=== PATIENT | female | born 2000 | race Hispanic/Latino ===

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

== ENCOUNTER 2022-03-21 08:14 | Emergency (ER) | payer OTHER ==
[~2022-03-21] VITALS: Ht 157.5 cm; Wt 95.3 kg
[~2022-03-21 08:14] MED LIST changes: +HYDROCODONE PO
[2022-03-21 09:21] LABS: BASOPHILS % 0.4 % (0.0-1.0); EOSINOPHILS # (AUTO) 0.1 (0.0-0.4); EOSINOPHILS % 1.8 % (0.0-6.0); HEMATOCRIT 33.6 % (34.2-44.1); HEMOGLOBIN 9.9 g/dL (12.0-16.0); LYMPHOCYTES # (AUTO) 2.2 (1.0-3.2); LYMPHOCYTES % 28.2 % (18.0-39.1); MEAN CORPUSCULAR HEMOGLOBIN 21.5 pg (28-32); MEAN CORPUSCULAR HGB CONC 29.5 g/dL (31-35); MEAN CORPUSCULAR VOLUME 72.9 fL (81-99); MONOCYTES # (AUTO) 0.6 (0.2-0.8); MONOCYTES % 7.2 % (4.4-11.3); NEUTROPHILS # (AUTO) 4.8 (2.1-6.9); PLATELET COUNT 506 x10e3/uL (140-360); RED BLOOD COUNT 4.61 x10e6/uL (3.6-5.1); RED CELL DISTRIBUTION WIDTH 18.7 % (11.7-14.4)
[2022-03-21 09:31] VITALS: BP 122/80
== END 2022-03-21 09:33 | disposition home or self-care (01) ==
LOC: ER 08:31
DX: N92.1 Excessive and frequent menstruation with irregular cycle (principal); D64.9 Anemia, unspecified; R42 Dizziness and giddiness
CPT/HCPCS: 36415; 85025; 99283

== ENCOUNTER 2023-04-11 17:32 | Emergency (ER) | payer OTHER ==
[~2023-04-11] VITALS: Ht 157.5 cm; Wt 95.3 kg
[2023-04-11 19:11] LABS: BASOPHILS % 0.2 % (0.0-1.0); EOSINOPHILS # (AUTO) 0.1 (0.0-0.4); EOSINOPHILS % 1.2 % (0.0-6.0); HEMATOCRIT 27.9 % (34.2-44.1); HEMOGLOBIN 7.9 g/dL (12.0-16.0); LYMPHOCYTES # (AUTO) 2.3 (1.0-3.2); LYMPHOCYTES % 23.3 % (18.0-39.1); MEAN CORPUSCULAR HEMOGLOBIN 18.9 pg (28-32); MEAN CORPUSCULAR HGB CONC 28.3 g/dL (31-35); MEAN CORPUSCULAR VOLUME 66.6 fL (81-99); MONOCYTES # (AUTO) 0.7 (0.2-0.8); MONOCYTES % 6.7 % (4.4-11.3); NEUTROPHILS # (AUTO) 6.8 (2.1-6.9); NEUTROPHILS % 68.4 % (38.7-80.0); PLATELET COUNT 446 x10e3/uL (140-360); RED BLOOD COUNT 4.19 x10e6/uL (3.6-5.1); RED CELL DISTRIBUTION WIDTH 21.2 % (11.7-14.4)
[2023-04-11 19:28] LABS: ALBUMIN 3.8 g/dL (3.5-5.0); ANION GAP 11.9 mmol/L (8-16); CALCIUM 9.1 mg/dL (8.4-10.2); CREATININE, SERUM 0.68 mg/dL (0.57-1.11); POTASSIUM 3.9 mmol/L (3.5-5.1)
[2023-04-11 19:28] LABS: CLARITY,URINE CLOUDY (CLEAR)
[2023-04-11 19:29] LABS: COLOR,URINE PINK (YELLOW); KETONES,URINE NEGATIVE (NEGATIVE); LEUKOCYTE ESTERASE ,URINE NEGATIVE (NEGATIVE); NITRITE,URINE NEGATIVE (NEGATIVE); PROTEIN,URINE DIPSTICK 2+ (NEGATIVE); URINE UROBILINOGEN 0.2 mg/dL (0.2 - 1)
[2023-04-11 19:31] LABS: BACTERIA,URINE FEW /HPF; EPITHELIAL CELLS,URINE MODERATE /LPF; RBC,URINE >50 /HPF (0-5); WBC,URINE (MAN) 0-5 /HPF (0-5)
[2023-04-11 20:11] VITALS: BP 121/60; PULSE 85; RESP 18; TEMP 99.2; O2SAT 100
== END 2023-04-11 20:33 | disposition home or self-care (01) ==
LOC: ER 17:57
DX: N93.8 Other specified abnormal uterine and vaginal bleeding (principal); D64.9 Anemia, unspecified
CPT/HCPCS: 36415; 80053; 81001; 81025; 85025; 99283

== ENCOUNTER 2023-11-29 14:02 | Emergency (ER) | payer SELFPAY ==
[~2023-11-29] VITALS: Ht 157.5 cm; Wt 95.3 kg
[2023-11-29 14:10] VITALS: O2SAT 100
[2023-11-29 14:41] LABS: BASOPHILS % 0.3 % (0.0-1.0); EOSINOPHILS # (AUTO) 0.2 (0.0-0.4); EOSINOPHILS % 1.6 % (0.0-6.0); HEMATOCRIT 35.2 % (34.2-44.1); HEMOGLOBIN 10.5 g/dL (12.0-16.0); LYMPHOCYTES # (AUTO) 2.1 (1.0-3.2); LYMPHOCYTES % 22.2 % (18.0-39.1); MEAN CORPUSCULAR HGB CONC 29.8 g/dL (31-35); MEAN CORPUSCULAR VOLUME 73.8 fL (81-99); MONOCYTES # (AUTO) 0.7 (0.2-0.8); MONOCYTES % 7.2 % (4.4-11.3); NEUTROPHILS # (AUTO) 6.4 (2.1-6.9); NEUTROPHILS % 68.5 % (38.7-80.0); PLATELET COUNT 474 x10e3/uL (140-360); RED BLOOD COUNT 4.77 x10e6/uL (3.6-5.1); RED CELL DISTRIBUTION WIDTH 18.6 % (11.7-14.4); WHITE BLOOD COUNT 9.41 x10e3/uL (4.8-10.8)
[2023-11-29 14:57] LABS: ALBUMIN 4.1 g/dL (3.5-5.0); ALBUMIN/GLOBULIN RATIO 0.9 (0.8-2.0); BILIRUBIN,TOTAL 0.4 mg/dL (0.2-1.2); CALCIUM 9.7 mg/dL (8.4-10.2); CREATININE, SERUM 0.68 mg/dL (0.57-1.11); TOTAL PROTEIN 8.5 g/dL (6.5-8.1)
== END 2023-11-29 16:25 | disposition home or self-care (01) ==
LOC: ER 14:25
DX: R42 Dizziness and giddiness (principal); N92.0 Excessive and frequent menstruation with regular cycle; D64.9 Anemia, unspecified; R53.1 Weakness
CPT/HCPCS: 36415; 80053; 84702; 85025; 86850; 86900; 99284